=== PATIENT | female | born 1975 | race Caucasian/White ===

== ENCOUNTER 2020-05-19 06:22 | Emergency (ER) | payer BC, MEDICARE ==
[~2020-05-19] VITALS: Ht 167.6 cm; Wt 75.0 kg
[~2020-05-19 06:22] MED LIST: AMOX-422 PO; CETI5TAB21; CLA10T PO; DIPH25CA83 PO; GUAI600T PO; IBUP200C5 PO
[2020-05-19] MEDS ORDERED: ondansetron 4mg rapidly disintigrating tab PO ONE (07:10)
[2020-05-19] MEDS ORDERED: ONDA4TAB6 PO (07:38)
[2020-05-19 07:48] VITALS: BP 108/75
== END 2020-05-19 07:49 | disposition home or self-care (01) ==
LOC: ER 06:22
DX: A08.4 Viral intestinal infection, unspecified (principal); R11.2 Nausea with vomiting, unspecified; R19.7 Diarrhea, unspecified; R42 Dizziness and giddiness; R53.83 Other fatigue; G43.909 Migraine, unspecified, not intractable, without status migrainosus; Z56.0 Unemployment, unspecified; Z88.5 Allergy status to narcotic agent; Z79.2 Long term (current) use of antibiotics; Z79.899 Other long term (current) drug therapy
CPT/HCPCS: 99283